=== PATIENT | male | born 1950 | race Asian ===

== ENCOUNTER → 2016-11-10 | Outpatient (CLI) | payer OTHER ==
[2015-02-03 10:20] VITALS: BP 136/64
[~2016-11-10] MED LIST: ACET500T68 PO; AMLO5TAB4 PO; AMOX1TAB11 PO
--- NOTE | 2016-11-10 13:15 | KCIC ---
Examination: 2 views of chest. HISTORY: History of persistent cough COMPARISON: None available Findings: Low lung volumes accentuates heart size and pulmonary vascularity. Faint patchy ground glass airspace opacities identified in the bilateral lungs could be atelectasis or pneumonitis. IMPRESSION: Faint bilateral lung groundglass airspace opacities could be atelectasis or pneumonitis. Follow-up to resolution. Electronically signed by: Joe Stoner MD (11/10/2016 1:12 PM) [place] [id number]
== END | disposition home or self-care (01) ==
LOC: KCIC 11:02
PROVIDERS: ATTEND Internal Medicine
DX: R91.8 Other nonspecific abnormal finding of lung field (principal); R05 Cough
CPT/HCPCS: 71020

== ENCOUNTER 2016-12-15 08:59 | Emergency (ER) | payer OTHER ==
--- NOTE | 2016-12-15 09:07 | PHYS DOC ---
Past Medical History Past Medical History: Depression, Diabetes-Type II, High Cholesterol, Hypertension, Pneumonia, Other Additional Past Medical Histor: FLUID REMOVED FROM LUNG Past Surgical History: No Surgical History Alcohol Use: None Drug Use: None Adult General Chief Complaint Chief Complaint: NEURO SYMPTOMS/DEFICITS HPI HPI Patient is a 66 year old male who presents with sided weakness. According to his he woke up at 7 AM and was fine with the bathroom and came back and then started complaining of his left side being weak. Does have a past medical history of diabetes. According to his daughter is a nurse here [facility] patient had some numbness of his left arm started on Tuesday persisted Tuesday and then resolved and then this morning was able to talk and had no complaints at 7:00 when she was on the phone with him and at 7:30 mom called her back and said that now he is weak on the left side and unable to talk. Here he has left- sided facial droop and won't move his left side of his body or communicate. According to his daughter he's not had any recent surgeries he's not on any anticoagulation other than a baby aspirin has not had a stroke in the past. Review of Systems Review of Systems Constitutional: Denies fever or chills [] Eyes: Denies change in visual acuity, redness, or eye pain [] HENT: Denies nasal congestion or sore throat [] Respiratory: Denies cough or shortness of breath [] Cardiovascular: No additional information not addressed in HPI [] GI: Denies abdominal pain, nausea, vomiting, bloody stools or diarrhea [] : Denies dysuria or hematuria [] Musculoskeletal: Denies back pain or joint pain [] Integument: Denies rash or skin lesions [] Neurologic: Denies headache, focal weakness or sensory changes [] Endocrine: Denies polyuria or polydipsia [] Current Medications Current Medications Current Medications Medications (Trade) Dose Ordered Sig/Geovanny Start Time Stop Time Status Last Admin Dose Admin Alteplase, Recombinant 0 ml @ 0 mls/hr Q1H 12/15/16 09:30 12/15/16 09:31 UNV Labetalol HCl (Normodyne) 10 mg PRN Q10MIN PRN 12/15/16 09:30 Nicardipine HCl 50 mg/Sodium Chloride 270 ml @ 27 mls/hr CONT PRN PRN 12/15/16 09:30 Sodium Chloride 50 ml @ 0 mls/hr 1X ONCE 12/15/16 09:30 12/15/16 09:31 UNV Allergies Allergies Allergies Coded Allergies Type Severity Reaction Last Updated Verified No Known Drug Allergies 01/31/15 No Physical Exam Physical Exam Constitutional: Well developed, well nourished, no acute distress, non-toxic appearance. [] HENT: Normocephalic, atraumatic, bilateral external ears normal, oropharynx moist, no oral exudates, nose normal. [] Eyes: PERRLA, EOMI, conjunctiva normal, no discharge. [] Neck: Normal range of motion, no tenderness, supple, no stridor. [] Cardiovascular:Heart rate regular rhythm, no murmur [] Lungs & Thorax: Bilateral breath sounds clear to auscultation [] Abdomen: Bowel sounds normal, soft, no tenderness, no masses, no pulsatile masses. [] Skin: Warm, dry, no erythema, no rash. [] Back: No tenderness, no CVA tenderness. [] Extremities: No tenderness, no cyanosis, no clubbing, ROM intact, no edema. [] Neurologic: Alert and her active with slurred speech, left-sided facial droop able to raise left eyebrow minimally, right sided gaze deviance, left arm and left leg strengths 0 out of 5, NIH 18, please refer to nursing notes for explanation of NIH score. [] Psychologic: Affect normal, judgement normal, mood normal. [] Current Patient Data Lab Values Laboratory Tests Test 12/15/16 09:15 12/15/16 09:25 12/15/16 09:35 White Blood Count 7.1 x10^3/uL (4.0-11.0) Red Blood Count 5.56 x10^6/uL (4.30-5.70) Hemoglobin 16.1 g/dL (13.0-17.5) Hematocrit 49.3 % (39.0-53.0) Mean Corpuscular Volume 89 fL (79-100) Mean Corpuscular Hemoglobin 29 pg (25-35) Mean Corpuscular Hemoglobin Concent 33 g/dL (31-37) Red Cell Distribution Width 13.8 % (11.5-14.5) Platelet Count 162 x10^3/uL (140-400) Prothrombin Time 12.6 SEC (11.7-14.0) Prothrombin Time INR 1.0 (0.8-1.1) PTT 33 SEC (24-38) Sodium Level 139 mmol/L (136-145) Potassium Level 4.3 mmol/L (3.5-5.1) Chloride Level 104 mmol/L (98-107) Carbon Dioxide Level 27 mmol/L (21-32) Anion Gap 8 (6-14) 16 mmol/L (6-14) H Blood Urea Nitrogen 16 mg/dL (8-26) Creatinine 1.0 mg/dL (0.7-1.3) Estimated GFR (Cockcroft-Gault) 75.0 Glucose Level 161 mg/dL (70-99) H 154 mg/dL (70-99) H Calcium Level 9.0 mg/dL (8.5-10.1) POC Hemoglobin 17.3 g/dL (14-18) POC Hematocrit 51 % (37-52) POC Sodium 139 mmol/L (135-145) POC Potassium 4.4 mmol/L (3.5-5.0) POC Chloride 104 mmol/L (98-110) POC Total CO2 25 mmol/L (23-32) POC Blood Urea Nitrogen 18 mg/dL (8-26) POC Creatinine 0.9 mg/dL (0.5-1.4) POC Ionized Calcium (Brenden) 1.16 mmol/L (1.13-1.32) Glucose (Fingerstick) 165 mg/dL (70-99) H Laboratory Tests 12/15/16 09:15 Laboratory Tests 12/15/16 09:15 12/15/16 09:25 EKG EKG EKG shows sinus rhythm with a rate of [address] elevations or T- wave inversions, normal axis, QTC 402 ms, as interpreted by me. Radiology/Procedures Radiology/Procedures [facility] [address] [place], [place] [id number] IMAGING REPORT Signed PATIENT: BISHOP POOLE ACCOUNT: [id number] : 1950 LOCATION: ER AGE: 66 SEX: M EXAM STATUS: PRE ER ORD. PHYSICIAN: SUMAN SON MD REASON: code stroke PROCEDURE: CT CODE STROKE HEAD WO CT head without contrast History: Code stroke, left-sided weakness, facial droop. Comparison: None. Procedure: Axial images are obtained of the head from the skull base through the vertex without IV contrast. Findings: The ventricles and sulci are normal for the patient's age. No mass-effect, intracranial mass, midline shift, hemorrhage or obvious acute infarction is identified. Basilar cisterns are patent. Bone windows demonstrate no significant calvarial abnormality. The visualized paranasal sinuses appear clear. Impression: 1. No acute intracranial process. Report was called to ordering ER physician at time of dictation. PQRS Compliance Statement: One or more of the following individualized dose reduction techniques were utilized for this examination: 1. Automated exposure control 2. Adjustment of the mA and/or kV according to patient size 3. Use of iterative reconstruction technique DICTATED and SIGNED BY: JONO BONILLA MD DATE: 12/15/16912 CC: CADEN BLISS MD; SUMAN SON MD ~ Impressions: Left-sided hemiparesis with TPA infusing Diabetes Hypertension Dyslipidemia Course & Med Decision Making Course & Med Decision Making Pertinent Labs and Imaging studies reviewed. (See chart for details) She arrived with left-sided hemiparesis and left-sided facial droop. CT scan did not show any acute hemorrhage or other abnormalities therefore TPA was initiated based on TPA protocol. I explained the risks to the daughter who is a nurse here at [employer]. I explained to her there is a greater than 6-8% chance of hemorrhage with in her dad's nationality. She states that she understands the risk and they're agreeable to proceed I did go through a list of contraindications indications and he does not have any contraindications to TPA. Spoke with Dr. Torres, regarding TPA administration and then spoke with the transfer team at [facility] with Dr. Santana the neurologist and Dr. Wendy Resendez , who is accepting physician. Patient's in stable condition being transferred to [facility] at this time. Total care time: 65 minutes of critical care time was used on this patient excluding procedures. Dragon Disclaimer Dragon Disclaimer This electronic medical record was generated, in whole or in part, using a voice recognition dictation system. Departure Departure Impression: Primary Impression: Acute ischemic stroke Disposition: 05 TRANSFER OTHER Condition: GUARDED Referrals: CADEN BLISS MD (PCP) SUMAN SON MD Dec 15, 2016 09:07
--- NOTE | 2016-12-15 09:19 | RAD ---
CT head without contrast History: Code stroke, left-sided weakness, facial droop. Comparison: None. Procedure: Axial images are obtained of the head from the skull base through the vertex without IV contrast. Findings: The ventricles and sulci are normal for the patient's age. No mass-effect, intracranial mass, midline shift, hemorrhage or obvious acute infarction is identified. Basilar cisterns are patent. Bone windows demonstrate no significant calvarial abnormality. The visualized paranasal sinuses appear clear. Impression: 1. No acute intracranial process. Report was called to ordering ER physician at time of dictation. PQRS Compliance Statement: One or more of the following individualized dose reduction techniques were utilized for this examination: 1. Automated exposure control 2. Adjustment of the mA and/or kV according to patient size 3. Use of iterative reconstruction technique
--- NOTE | 2016-12-15 09:24 | EKG ---
[facility] [address] [place] [address] Test Date: 2016-12-15 Test Time: 09:14:23 Pat Name: BISHOP POOLE Department: Room: Gender: M [employer]: : 1950 Requested By: SUMAN SON Order Number: [id number] Reading MD: Isaac Crespo Measurements Intervals [place] Rate: 64 P: 55 NM: 178 QRS: 2 QRSD: 80 T: 41 QT: 390 QTc: 402 Interpretive Statements SINUS RHYTHM LEFT ATRIAL ABNORMALITY QRS(T) CONTOUR ABNORMALITY CONSIDER ANTEROSEPTAL MYOCARDIAL DAMAGE RI6.01 Unconfirmed report Compared to ECG 01/31/2015 17:26:34 Left-axis deviation no longer present ST (T wave) deviation no longer present Electronically Signed On 12-24-2016 12:50:38 CDT by Isaac Crespo
[2016-12-15 09:28] LABS: POTASSIUM ISTAT 4.4 mmol/L (3.5-5.0)
[2016-12-15] MEDS ORDERED: ALTEPLASE IV SCH (09:30)
[2016-12-15] MEDS ORDERED: IV NORMAL SALINE 50ML 50 ML IV ONE ×2 (09:30)
[2016-12-15] MEDS ORDERED: ALTEPLASE 0 MG IV ONE (09:30)
[2016-12-15] MEDS ORDERED: ALTEPLASE 6 MG IV ONE (09:30)
[2016-12-15] MEDS ORDERED: ALTEPLASE 0 MG IV SCH (09:30)
[2016-12-15] MEDS ORDERED: LABETALOL 20 MG/4 ML DISP.SYRIN. IV PRN (09:30)
[2016-12-15 09:36] LABS: POTASSIUM 4.3 mmol/L (3.5-5.1)
[2016-12-15 09:47] LABS: HEMATOCRIT 49.3 % (39.0-53.0); HEMOGLOBIN 16.1 g/dL (13.0-17.5); RED BLOOD COUNT 5.56 x10^6/uL (4.30-5.70); RED CELL DISTRIBUTION WIDTH 13.8 % (11.5-14.5); WHITE BLOOD COUNT 7.1 x10^3/uL (4.0-11.0)
[2016-12-15 09:55] LABS: PROTHROMBIN TIME PATIENT 12.6 SEC (11.7-14.0)
[2016-12-15 10:00] VITALS: BP 129/61
== END 2016-12-15 10:23 | disposition short-term general hospital (02) ==
LOC: ER 08:59
DX: I63.9 Cerebral infarction, unspecified (principal); E78.00 Pure hypercholesterolemia, unspecified; E11.9 Type 2 diabetes mellitus without complications; I10 Essential (primary) hypertension; F32.9 Major depressive disorder, single episode, unspecified
CPT/HCPCS: 36415; 37195; 70450; 80047; 80048; 82962; 85027; 85610; 85730; 93005; 99291; J2997; 99285-25

== ENCOUNTER 2018-02-14 19:50 | Emergency (ER) | payer MEDICARE, OTHER ==
[~2018-02-14] VITALS: Ht 162.6 cm; Wt 72.6 kg
[2018-02-14 20:30] VITALS: BP 168/82
--- NOTE | 2018-02-14 21:20 | PHYS DOC ---
Past Medical History Past Medical History: Anxiety, COPD, CVA, Depression, Diabetes-Type II, High Cholesterol, Hypertension, Pneumonia, Other Additional Past Medical Histor: FLUID REMOVED FROM LUNG, GOUT Past Surgical History: Other Additional Past Surgical Histo: RUBEN ABCESS Alcohol Use: None Drug Use: None Adult General Chief Complaint Chief Complaint: FOREIGNBODY EAR HPI HPI Patient is a 67 year old male who presents with seen at the [facility] today and they state that there is a foreign body in the left ear. Review of Systems Review of Systems Constitutional: Denies fever or chills [] Eyes: Denies change in visual acuity, redness, or eye pain [] HENT: Left ear foreign body and wax. Denies nasal congestion or sore throat [] Respiratory: Denies cough or shortness of breath [] Cardiovascular: No additional information not addressed in HPI [] GI: Denies abdominal pain, nausea, vomiting, bloody stools or diarrhea [] : Denies dysuria or hematuria [] Musculoskeletal: Denies back pain or joint pain [] Integument: Denies rash or skin lesions [] Neurologic: Denies headache, focal weakness or sensory changes [] Endocrine: Denies polyuria or polydipsia [] All other systems were reviewed and found to be within normal limits, except as documented in this note. Allergies Allergies Allergies Coded Allergies Type Severity Reaction Last Updated Verified No Known Drug Allergies 01/31/15 No Physical Exam Physical Exam Constitutional: Well developed, well nourished, no acute distress, non-toxic appearance. [] HENT: Normocephalic, atraumatic, bilateral external ears normal, oropharynx moist, no oral exudates, nose normal. Small black object in wax in left ear canal.[] Eyes: PERRLA, EOMI, conjunctiva normal, no discharge. [] Neck: Normal range of motion, no tenderness, supple, no stridor. [] Cardiovascular:Heart rate regular rhythm, no murmur [] Lungs & Thorax: Bilateral breath sounds clear to auscultation [] Abdomen: Bowel sounds normal, soft, no tenderness, no masses, no pulsatile masses. [] Skin: Warm, dry, no erythema, no rash. [] Back: No tenderness, no CVA tenderness. [] Extremities: No tenderness, no cyanosis, no clubbing, ROM intact, no edema. [] Neurologic: Alert and oriented X 3, normal motor function, normal sensory function, no focal deficits noted. [] Psychologic: Affect normal, judgement normal, mood normal. [] Current Patient Data Vital Signs Vital Signs Date Time Temp Pulse Resp B/P (MAP) Pulse Ox O2 Delivery O2 Flow Rate FiO2 02/14/18 20:30 98.3 88 18 168/82 (110) 95 Room Air 98.3 EKG EKG [] Radiology/Procedures Radiology/Procedures [] Course & Med Decision Making Course & Med Decision Making Patient is a 67 year old male who presents with seen at the [facility] today and they state that there is a foreign body in the left ear. There is ear wax and a small black objects seen in the left ear canal. Left ear canal is flushed with saline and peroxide mixture. The black object and wax is flushed from the ear. Patient ear canal is irritated and painful with examination. Patient's right ear is also flushed and wax was removed. Patient is given a prescription for Ciprodex and told to follow-up with his primary care. Patient tolerated procedure well. Dragon Disclaimer Dragon Disclaimer This electronic medical record was generated, in whole or in part, using a voice recognition dictation system. Departure Departure Impression: Primary Impression: Foreign body in ear Additional Impression: Otitis externa Disposition: 01 HOME, SELF-CARE Condition: STABLE Referrals: CADEN BLISS MD (PCP) Patient Instructions: Ear Foreign Body Additional Instructions: follow up with primary care as needed. Scripts Ciprofloxacin Hcl/Dexameth (CIPRODEX OTIC SUSPENSION) 7.5 Ml Drops.susp 4 DROP EACH EAR BID for 5 Days, #1 BOTTLE Prov: FRANCESCO HOFF APRN 02/14/18 Attending Signature Attending Signature I have reviewed the PA/PT SITTER's note and plan of care. I was available for consultation as needed during the patient's visit in the emergency department. I agree with the clinical impression, plan, and disposition. Problem Qualifiers Primary Impression: Foreign body in ear Encounter type: initial encounter Laterality: left Qualified Codes: T16.2XXA - Foreign body in left ear, initial encounter Additional Impression: Otitis externa Otitis externa type: unspecified type Chronicity: acute Laterality: left Qualified Codes: H60.502 - Unspecified acute noninfective otitis externa, left ear FRANCESCO HOFF APRN Feb 14, 2018 21:20 RAÚL DHALIWAL DO Feb 15, 2018 02:15
[2018-02-14] MEDS ORDERED: CIPR7.5D EACH EAR (22:05)
== END 2018-02-14 22:10 | disposition home or self-care (01) ==
LOC: ER 19:50
DX: T16.2XXA Foreign body in left ear, initial encounter (principal); H60.502 Unspecified acute noninfective otitis externa, left ear; F41.9 Anxiety disorder, unspecified; J44.9 Chronic obstructive pulmonary disease, unspecified; E11.9 Type 2 diabetes mellitus without complications; F32.9 Major depressive disorder, single episode, unspecified; E78.00 Pure hypercholesterolemia, unspecified; I10 Essential (primary) hypertension; Z86.73 Personal history of transient ischemic attack (TIA), and cerebral infarction without residual deficits; X58.XXXA Exposure to other specified factors, initial encounter; Y93.89 Activity, other specified; Y92.89 Other specified places as the place of occurrence of the external cause; Y99.8 Other external cause status
CPT/HCPCS: 69209; 99284

== ENCOUNTER → 2020-02-11 | Outpatient (CLI) | payer MEDICARE, OTHER ==
[~2020-02-11] MED LIST changes: +CIPR7.5D EACH EAR
--- NOTE | 2020-02-11 15:28 | KCIC ---
CHEST PA LATERAL Technique: PA and lateral views of the chest were obtained. Clinical History: Reason: Cough, fever, hx stroke. / Spl. Instructions: Pt poor historian. / History: Comparison: November 10, 2016. Findings: The heart and pulmonary vasculature appear within normal limits. There is patchy opacities throughout the lungs left worse than right. The pleural margins are clear. Impression: Moderate bilateral infiltrates likely atypical pneumonia. Recommend follow-up chest x-ray to complete resolution. Electronically signed by: Nick Huang III, MD (02/11/2020 3:26 PM) [place]
== END ==
LOC: KCIC 10:02
PROVIDERS: ATTEND Internal Medicine
DX: R05 Cough (principal); R50.9 Fever, unspecified; Z86.73 Personal history of transient ischemic attack (TIA), and cerebral infarction without residual deficits
CPT/HCPCS: 71046

== ENCOUNTER 2020-08-21 03:00 | Emergency (ER) | payer MEDICARE, OTHER ==
[~2020-08-21] VITALS: Ht 160 cm; Wt 71.3 kg
[2020-08-21] MEDS ORDERED: SUCCINYLCHOLINE 200 MG/10 ML VIAL. IV ONE (03:25)
[2020-08-21] MEDS ORDERED: MIDAZOLAM HCL/PF 5 MG/5 ML VIAL. IV ONE (03:25)
[2020-08-21] MEDS ORDERED: ETOMIDATE 20 MG/10 ML VIAL. IV ONE ×2 (03:25→05:51)
--- NOTE | 2020-08-21 03:26 | RAD ---
EXAM: CT Head without IV contrast CLINICAL HISTORY: Reason: ams / Spl. Instructions: / History: COMPARISON: None. TECHNIQUE: Routine CT of the head without contrast. PQRS compliance statement - One or more of the following individualized dose reduction techniques wer e utilized for this study: 1. Automated exposure control 2. Adjustment of the mA and/or kV according to patient size 3. Use of iterative reconstruction technique FINDINGS: There is no evidence of hemorrhage, mass or extra-axial fluid collection. Encephalomalacia right frontoparietal-temporal region from large MCA infarct, chronic in appearance. Subcortical, periventricular as well as deep white matter foci of hypoattenuation likely changes of c hronic small vessel disease. There is no mass effect or shift of the intracranial structures. The ventricles, basilar cisterns and cortical sulci are normal in size and configuration for the alessandro ents stated age. The cerebellum and brainstem are unremarkable. The calvarium demonstrates no evidence of fracture or focal lesion. Maxillary sinus thickening may be seen with sinusitis. Otherwise there is normal aeration of the visu alized paranasal sinuses and mastoid air cells. The visualized portions of the orbits are normal. IMPRESSION: 1. No evidence for acute intracranial process. 2. Chronic encephalomalacia is seen in the right frontoparietal and temporal region from old MCA inf arct. If there is clinical concern for superimposed acute infarct, MRI can be performed. 3. Maxillary sinus disease. 4. White matter changes likely chronic small vessel disease. Findings discussed with Dr. Mclean at 08/21/2020 3:22 AM. FOR INTERNAL CODING PURPOSES RESULT CODE: (C) Electronically signed by: Dave Woodall MD (08/21/2020 3:24 AM) [facility]
[2020-08-21] MEDS ORDERED: PROPOFOL 100 ML IV ONE (03:29)
[2020-08-21] MEDS ORDERED: CONTRAST GIVEN. MC PRN (03:45)
--- NOTE | 2020-08-21 03:58 | RAD ---
CLINICAL HISTORY: Reason: ams / Spl. Instructions: / History: COMPARISON: 08/21/2020, 12/15/2016 TECHNIQUE: CT angiogram of the head and neck was performed following the administration of IV contras t. Multiplanar reconstructed images were obtained including 3D reconstructed images performed on an i [employer] work station. Stenosis if present in the carotid arteries were measured using NASCET crite rosario. PQRS compliance statement - One or more of the following individualized dose reduction techniques wer e utilized for this study: 1. Automated exposure control 2. Adjustment of the mA and/or kV according to patient size 3. Use of iterative reconstruction technique FINDINGS: In the neck, the origins of the great vessels are unremarkable. Atheromatous plaque with possible short segment dissection is seen at the left carotid bulb with up t o 50 percent luminal narrowing Otherwise the common and internal carotid arteries, bilaterally are normal with no evidence of signif icant stenosis or occlusion. The vertebral arteries in the neck are well visualized bilaterally and unremarkable. The left vertebr al artery is dominant. The right internal carotid artery is diminutive. The right MCA is severely narrowed at the M1-M2 leve l. This is likely related to the known chronic large right MCA infarct. Intermittent atheromatous plaque results in less than 50 percent narrowing of the left ICA at the cav ernous segment. The left MCA is occluded at the origin of the M1 segment. Trace thready flow is seen within distal branches of the M1/M2 segments. The SOL[employer], [employer] and vertebral basilar arteries are widely patent. Nodular opacities in the upper lobes likely consolidative process or parenchymal masses. Representati ve right upper lobe lesion measures 13 mm. Several lesions appear cavitary enlarged mediastinal lymph nodes are also seen. IMPRESSION: 1. There is occlusion of the left MCA at the origin of the M1 segment. 2. Chronic appearing right MCA infarct with occlusion of the M1/M2 segment. 3. Extensive atheromatous plaque at the carotid bulb results in up to 50 percent narrowing with shor t segment dissection flap versus pedunculated atheroma 4. Nodular opacities in the upper lungs bilaterally, possibly infectious or inflammatory. Parenchyma l masses are not excluded. CT Imaging follow-up to resolution versus evaluation with nonemergent PET scan can be performed. Findings discussed with Dr. Mclean at 08/21/2020 3:45 AM. FOR INTERNAL CODING PURPOSES RESULT CODE: (C) Electronically signed by: Dave Woodall MD (08/21/2020 3:56 AM) [facility]
[2020-08-21] MEDS ORDERED: ACETAMINOPHEN 650 MG SUPP.RECT. PR ONE (04:00)
[2020-08-21] MEDS ORDERED: PROPOFOL 10 MG/ML (20ML) VIAL. IV ONE ×2 (04:00)
[2020-08-21] MEDS ORDERED: IOHEXOL 300 MG/ML 100ML VIAL. IV ONE (04:00)
[2020-08-21] MEDS ORDERED: IV NORMAL SALINE 1000ML BAG 1,000 ML IV ONE (04:00)
--- NOTE | 2020-08-21 04:07 | RAD ---
EXAM: AP View of the chest DATE: 08/21/2020 3:34 AM INDICATION: Reason: POST INTUBATION; OG TUBE PLACEMENT / Spl. Instructions: / History: COMPARISON: 02/11/2020 FINDINGS/ IMPRESSION: ET tube tip terminates in the right mainstem bronchus. Enteric tube projects is seen within the stoma ch. Aorta is tortuous. Bilateral parenchymal airspace opacities are seen. No pleural effusion or pneumoth orax. Findings ET tube position the right mainstem bronchus discussed with Dr. Mclean at 08/21/2020 4:05 AM. FOR INTERNAL CODING PURPOSES RESULT CODE: (C) Electronically signed by: Dave Woodall MD (08/21/2020 4:05 AM) [facility]
[2020-08-21 04:09] LABS: BASO # 0.1 x10^3/uL (0.0-0.2); BASO % 1 % (0-3); EOS # 0.2 x10^3/uL (0.0-0.7); EOS % 1 % (0-3); HEMATOCRIT 48.7 % (39.0-53.0); HEMOGLOBIN 16.1 g/dL (13.0-17.5); LYMPH # 1.7 x10^3/uL (1.0-4.8); LYMPH % 15 % (24-48); MEAN CORPUSCULAR HEMOGLOBIN 29 pg (25-35); MEAN CORPUSCULAR HGB CONC 33 g/dL (31-37); MEAN CORPUSCULAR VOLUME 87 fL (79-100); MONO # 0.8 x10^3/uL (0.0-1.1); MONO % 7 % (0-9); NEUT # 8.8 x10^3/uL (1.8-7.7); NEUT % 76 % (31-73); PLATELET COUNT 208 x10^3/uL (140-400); RED BLOOD COUNT 5.63 x10^6/uL (4.30-5.70); RED CELL DISTRIBUTION WIDTH 14.2 % (11.5-14.5); WHITE BLOOD COUNT 11.6 x10^3/uL (4.0-11.0)
[2020-08-21 04:11] LABS: BILIRUBIN,URINE NEGATIVE (NEG); CLARITY,URINE CLOUDY; COLOR,URINE YELLOW; NITRITE,URINE NEGATIVE (NEG); PROTEIN,URINE 100 mg/dL (NEG-TRACE); UROBILINOGEN,URINE 0.2 mg/dL (0.2 mg/dL)
[2020-08-21] MEDS ORDERED: PROPOFOL 100 ML IV PRN (04:15)
[2020-08-21 04:17] LABS: BARBITURATES NEG (NEG); BENZODIAZEPINES NEG (NEG); CANNABINOIDS NEG (NEG); COCAINE NEG (NEG); METHADONE NEG (NEG); OPIATES NEG (NEG); PHENCYCLIDINE NEG (NEG)
[2020-08-21 04:20] LABS: AMPHETAMINE/METHAMPHETAMINE NEG (NEG)
[2020-08-21 04:27] VITALS: BP 129/54
[2020-08-21 04:27] LABS: CALCIUM 8.4 mg/dL (8.5-10.1); CREATININE 1.3 mg/dL (0.7-1.3); GFR 54.9; POTASSIUM 3.9 mmol/L (3.5-5.1)
[2020-08-21 04:28] LABS: BASE EXCESS ABG -12 mmol/L (-3-3); HCO3 ABG 15 mmol/L (21-28); PCO2 ABG 39 mmHg (35-46); PO2 ABG 480 mmHg (65-108); SAT O2 ABG 99 % (92-99)
[2020-08-21 04:32] LABS: AMORPHOUS SEDIMENT,UR PRESENT /HPF; BACTERIA,URINE 0 /HPF (0-FEW); HYALINE CASTS, URINE OCCASIONAL /HPF; RBC,URINE RARE /HPF (0-2); WBC,URINE RARE /HPF (0-4)
[2020-08-21 04:32] LABS: ALBUMIN 3.6 g/dL (3.4-5.0); MAGNESIUM 1.7 mg/dL (1.8-2.4); PHOSPHORUS 3.4 mg/dL (2.6-4.7); TOTAL BILIRUBIN 0.4 mg/dL (0.2-1.0); TOTAL PROTEIN 7.1 g/dL (6.4-8.2)
[2020-08-21 04:33] LABS: FIO2 ABG 100
--- NOTE | 2020-08-21 04:45 | ED.ADGEN ---
Past Medical History Past Medical History: Anxiety, COPD, CVA, Depression, Diabetes-Type II, High Cholesterol, Hypertension, Pneumonia, Other Additional Past Medical Histor: FLUID REMOVED FROM LUNG, GOUT Past Surgical History: Other Additional Past Surgical Histo: RUBEN ABCESS Smoking Status: Former Smoker Alcohol Use: None Drug Use: None General Adult EDM: Chief Complaint: NEURO SYMPTOMS/DEFICITS HPI: HPI: Patient is a 69 year old male coming in from home via EMS for altered mental status. Patient was unable to be aroused. Per EMS initial assessment he was somnolent, warm to the touch, and very diaphoretic. Family says that he started acting abnormally around 0200, history is very limited by family not being on scene, and patient not able to provide history for himself. Per report from daughter he has been being treated for TB with antibiotics via the health department for the past approximately 5 to 6 months and was considered to be in remission although still taking his antibiotics. Has a history of atrial fibrillation, hypertension, diabetes and depression. Patient thinks that he is only on diltiazem for his A. fib and is not anticoagulated. No recent falls. Has a history of a large MCA stroke in 2017, with left-sided paralysis Review of Systems: Review of Systems: All other systems within normal limits except for as noted in the HPI Current Medications: Current Medications Medications (Trade) Dose Ordered Sig/Geovanny Start Time Stop Time Status Last Admin Dose Admin Acetaminophen (Tylenol Supp) 650 mg 1X ONCE 08/21/20 04:00 08/21/20 04:01 DC 08/21/20 04:00 650 MG Chlorhexidine Gluconate (Peridex) 15 ml BID 08/21/20 09:00 Info (CONTRAST GIVEN -- Rx MONITORING) 1 each PRN DAILY PRN 08/21/20 03:45 08/23/20 03:44 Iohexol (Omnipaque 300 Mg/ml) 75 ml 1X ONCE 08/21/20 04:00 08/21/20 04:01 DC 08/21/20 03:49 75 ML Nicardipine HCl 50 mg/Sodium Chloride 250 ml @ 25 mls/hr CONT PRN 08/21/20 04:15 08/21/20 04:09 DC Propofol 100 ml @ 0 mls/hr CONT PRN 08/21/20 04:15 08/21/20 04:16 2.1 MLS/HR Propofol (Diprivan) 1,000 mg 1X ONCE 08/21/20 04:00 08/21/20 04:01 DC Sodium Chloride 1,000 ml @ 1,000 mls/hr 1X ONCE 08/21/20 04:00 08/21/20 04:59 08/21/20 03:44 1,000 MLS/HR Allergies: Allergies: Allergies Coded Allergies Type Severity Reaction Last Updated Verified No Known Drug Allergies 01/31/15 No Physical Exam: PE: Constitutional: Well developed, well nourished, somnolent, nonresponsive, diaphoretic HENT: Normocephalic, atraumatic, bilateral external ears normal, nose normal. [] Eyes: PERRLA,, right pupil approximately 4 mm, left pupil 3 mm, eyes moving independently of gaze or head movement. Conjunctiva normal, no discharge. [] Neck: No rigidity, supple, no stridor. [] Cardiovascular: Cardia with regular rhythm, brisk cap refill [] Lungs & Thorax: Sonorous but spontaneous respirations, no tachypnea or respiratory distress [] Abdomen: Soft, nondistended, no guarding palpation. Skin: Warm, moist, no erythema, no rash. [] Back: Unremarkable Extremities: No deformities, patient not cooperative with extremity exam. Neurologic: GCS [] Withdraws to pain, but occasional posturing type movements with painful stimulation. Upgoing Babinski on left, no movement on right [] Psychologic: Unable to assess Current Patient Data: Labs: Laboratory Tests Test 08/21/20 03:18 08/21/20 03:56 08/21/20 03:58 08/21/20 04:26 Glucose (Fingerstick) 304 mg/dL (70-99) H Urine Collection Type Unknown Urine Color Yellow Urine Clarity Cloudy Urine pH 5.0 (<5.0-8.0) Urine Specific [place] >=1.030 (1.000-1.030) Urine Protein 100 mg/dL (NEG-TRACE) Urine Glucose (UA) >=1000 mg/dL (NEG) Urine Ketones (Stick) Negative mg/dL (NEG) Urine Blood Small (NEG) Urine Nitrite Negative (NEG) Urine Bilirubin Negative (NEG) Urine Urobilinogen Dipstick 0.2 mg/dL (0.2 mg/dL) Urine Leukocyte Esterase Negative (NEG) Urine RBC Rare /HPF (0-2) Urine WBC Rare /HPF (0-4) Urine Squamous Epithelial Cells Occ /LPF Urine Amorphous Sediment Present /HPF Urine Bacteria 0 /HPF (0-FEW) Urine Hyaline Casts Occasional /HPF Urine Mucus Mod /LPF Urine Opiates Screen Neg (NEG) Urine Methadone Screen Neg (NEG) Urine Barbiturates Neg (NEG) Urine Phencyclidine Screen Neg (NEG) Urine Amphetamine/Methamphetamine Neg (NEG) Urine Benzodiazepines Screen Neg (NEG) Urine Cocaine Screen Neg (NEG) Urine Cannabinoids Screen Neg (NEG) Urine Ethyl Alcohol Neg (NEG) White Blood Count 11.6 x10^3/uL (4.0-11.0) H Red Blood Count 5.63 x10^6/uL (4.30-5.70) Hemoglobin 16.1 g/dL (13.0-17.5) Hematocrit 48.7 % (39.0-53.0) Mean Corpuscular Volume 87 fL (79-100) Mean Corpuscular Hemoglobin 29 pg (25-35) Mean Corpuscular Hemoglobin Concent 33 g/dL (31-37) Red Cell Distribution Width 14.2 % (11.5-14.5) Platelet Count 208 x10^3/uL (140-400) Neutrophils (%) (Auto) 76 % (31-73) H Lymphocytes (%) (Auto) 15 % (24-48) L Monocytes (%) (Auto) 7 % (0-9) Eosinophils (%) (Auto) 1 % (0-3) Basophils (%) (Auto) 1 % (0-3) Neutrophils # (Auto) 8.8 x10^3/uL (1.8-7.7) H Lymphocytes # (Auto) 1.7 x10^3/uL (1.0-4.8) Monocytes # (Auto) 0.8 x10^3/uL (0.0-1.1) Eosinophils # (Auto) 0.2 x10^3/uL (0.0-0.7) Basophils # (Auto) 0.1 x10^3/uL (0.0-0.2) Sodium Level 138 mmol/L (136-145) Potassium Level 3.9 mmol/L (3.5-5.1) Chloride Level 104 mmol/L (98-107) Carbon Dioxide Level 17 mmol/L (21-32) L Anion Gap 17 (6-14) H Blood Urea Nitrogen 20 mg/dL (8-26) Creatinine 1.3 mg/dL (0.7-1.3) Estimated GFR (Cockcroft-Gault) 54.9 BUN/Creatinine Ratio 15 (6-20) Glucose Level 291 mg/dL (70-99) H Calcium Level 8.4 mg/dL (8.5-10.1) L Phosphorus Level 3.4 mg/dL (2.6-4.7) Magnesium Level 1.7 mg/dL (1.8-2.4) L Total Bilirubin 0.4 mg/dL (0.2-1.0) Aspartate Amino Transferase (AST) 24 U/L (15-37) Alanine Aminotransferase (ALT) 28 U/L (16-63) Alkaline Phosphatase 82 U/L (46-116) Troponin I Quantitative 1.193 ng/mL (0.000-0.055) MS-Osr-L-Type Natriuretic Peptide 112 pg/mL (0-124) Total Protein 7.1 g/dL (6.4-8.2) Albumin 3.6 g/dL (3.4-5.0) Albumin/Globulin Ratio 1.0 (1.0-1.7) Thyroid Stimulating Hormone (TSH) 1.675 uIU/mL (0.358-3.74) Ethyl Alcohol Level < 10 mg/dL (0-10) O2 Saturation 99 % (92-99) Arterial Blood pH 7.21 (7.35-7.45) L Arterial Blood pCO2 at Patient Temp 39 mmHg (35-46) Arterial Blood pO2 at Patient Temp 480 mmHg (65-108) H Arterial Blood HCO3 15 mmol/L (21-28) L Arterial Blood Base Excess -12 mmol/L (-3-3) L FiO2 100 Laboratory Tests 08/21/20 03:58 Laboratory Tests 08/21/20 03:58 Vital Signs: Vital Signs Date Time Temp Pulse Resp B/P (MAP) Pulse Ox O2 Delivery O2 Flow Rate FiO2 08/21/20 03:40 95 Ventilator EKG: EKG: Sinus tachycardia, heart rate 130 bpm, left axis deviation, no ST elevation or depression, no ectopy. [] Heart Score: C/O Chest Pain: N/A Risk Factors: Risk Factors: DM, Current or recent (<one month) smoker, HTN, HLP, family history of CAD, obesity. Risk Scores: Score 0 - 3: 2.5% MACE over next 6 weeks - Discharge Home Score 4 - 6: 20.3% MACE over next 6 weeks - Admit for Clinical Observation Score 7 - 10: 72.7% MACE over next 6 weeks - Early Invasive Strategies Radiology/Procedures: Radiology/Procedures: [facility] [address] [place] [address] IMAGING REPORT Signed PATIENT: ANGEL POOLE ACCOUNT: [id number] : 1950 LOCATION: ER AGE: 69 SEX: M EXAM STATUS: REG ER ORD. PHYSICIAN: SUDHEER BELLAMY MD REASON: ams PROCEDURE: CT CODE STROKE HEAD WO EXAM: CT Head without IV contrast CLINICAL HISTORY: Reason: ams / Spl. Instructions: / History: COMPARISON: None. TECHNIQUE: Routine CT of the head without contrast. PQRS compliance statement - One or more of the following individualized dose reduction techniques were utilized for this study: 1. Automated exposure control 2. Adjustment of the mA and/or kV according to patient size 3. Use of iterative reconstruction technique FINDINGS: There is no evidence of hemorrhage, mass or extra-axial fluid collection. Encephalomalacia right frontoparietal-temporal region from large MCA infarct, chronic in appearance. Subcortical, periventricular as well as deep white matter foci of hypoattenuation likely changes of chronic small vessel disease. There is no mass effect or shift of the intracranial structures. The ventricles, basilar cisterns and cortical sulci are normal in size and configuration for the patients stated age. The cerebellum and brainstem are unremarkable. The calvarium demonstrates no evidence of fracture or focal lesion. Maxillary sinus thickening may be seen with sinusitis. Otherwise there is normal aeration of the visualized paranasal sinuses and mastoid air cells. The visualized portions of the orbits are normal. IMPRESSION: 1. No evidence for acute intracranial process. 2. Chronic encephalomalacia is seen in the right frontoparietal and temporal region from old MCA infarct. If there is clinical concern for superimposed acute infarct, MRI can be performed. 3. Maxillary sinus disease. 4. White matter changes likely chronic small vessel disease. Findings discussed with Dr. Bellamy at 08/21/2020 3:22 AM. FOR INTERNAL CODING PURPOSES RESULT CODE: (C) Electronically signed by: Dave Hernandez MD (08/21/2020 3:24 AM) [facility] DICTATED and SIGNED BY: DAVE HERNANDEZ MD DATE: 08/21/20 [id number] [facility] [address] [place] [address] IMAGING REPORT Signed PATIENT: ANGEL POOLE ACCOUNT: [id number] : 1950 LOCATION: ER AGE: 69 SEX: M EXAM STATUS: REG ER ORD. PHYSICIAN: SUDHEER BELLAMY MD REASON: ams PROCEDURE: CT ANGIOGRAPHY HEAD AND NECK CLINICAL HISTORY: Reason: ams / Spl. Instructions: / History: COMPARISON: 08/21/2020, 12/15/2016 TECHNIQUE: CT angiogram of the head and neck was performed following the administration of IV contrast. Multiplanar reconstructed images were obtained including 3D reconstructed images performed on an independent work station. Stenosis if present in the carotid arteries were measured using NASCET criteria. PQRS compliance statement - One or more of the following individualized dose reduction techniques were utilized for this study: 1. Automated exposure control 2. Adjustment of the mA and/or kV according to patient size 3. Use of iterative reconstruction technique FINDINGS: In the neck, the origins of the great vessels are unremarkable. Atheromatous plaque with possible short segment dissection is seen at the left carotid bulb with up to 50 percent luminal narrowing Otherwise the common and internal carotid arteries, bilaterally are normal with no evidence of significant stenosis or occlusion. The vertebral arteries in the neck are well visualized bilaterally and unremarkable. The left vertebral artery is dominant. The right internal carotid artery is diminutive. The right MCA is severely narr owed at the M1-M2 level. This is likely related to the known chronic large right MCA infarct. Intermittent atheromatous plaque results in less than 50 percent narrowing of the left ICA at the cavernous segment. The left MCA is occluded at the origin of the M1 segment. Trace thready flow is seen within distal branches of the M1/M2 segments. The SOLO, BUFFERER and vertebral basilar arteries are widely patent. Nodular opacities in the upper lobes likely consolidative process or parenchymal masses. Charging Plug Placer right upper lobe lesion measures 13 mm. Several lesions appear cavitary enlarged mediastinal lymph nodes are also seen. IMPRESSION: 1. There is occlusion of the left MCA at the origin of the M1 segment. 2. Chronic appearing right MCA infarct with occlusion of the M1/M2 segment. 3. Extensive atheromatous plaque at the carotid bulb results in up to 50 percent narrowing with short segment dissection flap versus pedunculated atheroma 4. Nodular opacities in the upper lungs bilaterally, possibly infectious or inflammatory. Parenchymal masses are not excluded. CT Imaging follow-up to resolution versus evaluation with nonemergent PET scan can be performed. Findings discussed with Dr. Bellamy at 08/21/2020 3:45 AM. FOR INTERNAL CODING PURPOSES RESULT CODE: (C) Electronically signed by: Dave Hernandez MD (08/21/2020 3:56 AM) [facility] DICTATED and SIGNED BY: DAVE HERNANDEZ MD DATE: 08/21/20 [id number] [] Impression: Patient was intubated in emergent fashion and no consent was obtained. Patient was [] sedated and paralyzed with etomidate and succinylcholine. A glide scope with a size 3 blade was used, cords were visualized and a size 7.5 endotracheal tube was placed during first attempt. Endotracheal tube cuff was inflated and confirmation established by visualization of the cords passing the tubes, bilateral breath sounds, color change, and chest x-ray. X-ray showed right mainstem intubation. Tube was retracted 3 cm. Course & Med Decision Making: Course & Med Decision Making Pertinent Labs and Imaging studies reviewed. (See chart for details) Discussed the radiologist that there is an acute left MCA 1 occlusion that was likely amenable to thrombectomy. Discussed with Dr. Catalan with [facility] neurology who accepts patient for transfer, would like patient transported emergently via EMS to the ED for IR. Does not want any blood pressure control parameters or TPA prior to transport. Total critical care time: 75 The time involved in the performance of separately reportable/billable procedures was not counted toward critical care time. Due to a high probability of clinically significant, life-threatening dete rioration the patient required a high level of care to intervene emergently and I personally spent this critical time directly and personally managing the patient. The critical care time included obtaining a history, examination of the patient, assessment of vital signs, ordering and review of studies, arranging urgent treatment with development of a management plan, evaluation of patient's response to treatment, frequent reassessment, and discussions with other providers and/or family members. [] Dragon Disclaimer: Dragon Disclaimer: This electronic medical record was generated, in whole or in part, using a voice recognition dictation system. Departure Departure Impression: Primary Impression: Arterial ischemic stroke, MCA, left, acute Additional Impressions: Respiratory distress Non-STEMI (non-ST elevated myocardial infarction) Disposition: 02 SHORT TERM HOSPITAL Condition: CRITICAL Referrals: CADEN BLISS MD (PCP) Problem Qualifiers SUDHEER BELLAMY MD Aug 21, 2020 04:45
[2020-08-21] MEDS ORDERED: SUCCINYLCHOLINE 200 MG/10 ML VIAL. ONE (05:51)
[2020-08-21] MEDS ORDERED: MIDAZOLAM HCL/PF 5 MG/5 ML VIAL. ONE (05:56)
[2020-08-21] MEDS ORDERED: CHLORHEXIDINE 0.12% 15 ML MOUTHWASH. MM SCH (09:00)
--- NOTE | 2020-08-21 09:00 | EKG ---
[facility] [address] [place] [address] Test Date: 2020-08-21 Test Time: 03:23:33 Pat Name: ANGEL POOLE Department: Room: Gender: M Sleeve Setter: : 1950 Requested By: SUDHEER BELLAMY Order Number: [id number] Reading MD: Measurements Intervals [place] Rate: 130 P: -65 [place]: 112 QRS: -1 QRSD: 86 T: 66 QT: 294 QTc: 439 Interpretive Statements SUPRAVENTRICULAR RHYTHM LEFTWARD AXIS QRS(T) CONTOUR ABNORMALITY CONSIDER ANTEROSEPTAL MYOCARDIAL DAMAGE POSSIBLY ABNORMAL ECG RI6.01 No previous ECG available for comparison
== END 2020-08-21 04:47 | disposition short-term general hospital (02) ==
LOC: ER 03:00
DX: I63.89 Other cerebral infarction (principal); I10 Essential (primary) hypertension; R06.03 Acute respiratory distress; J44.9 Chronic obstructive pulmonary disease, unspecified; I21.A1 Myocardial infarction type 2; R41.82 Altered mental status, unspecified; E11.9 Type 2 diabetes mellitus without complications; E78.00 Pure hypercholesterolemia, unspecified; M10.9 Gout, unspecified; Z87.891 Personal history of nicotine dependence; I48.91 Unspecified atrial fibrillation
CPT/HCPCS: 31500; 36415; 36600; 51702; 70450; 70496; 70498; 71045; 80053; 80307; 81001; 82805; 82962; 83605; 83735; 83880; 84100; 84443; 84484; 85025; 85651; 87040; 93005; 96360; 99291; 99292; G0480; J0330; J2250; J2704; J3490; J7030; Q9967; 94002